=== PATIENT | female | born 1995 ===

== ENCOUNTER 2017-06-03 22:53 | Emergency (ER) | payer MEDICAID ==
[2017-06-03 23:08] VITALS: BP 156/96; PULSE 86; RESP 20; TEMP 98; O2SAT 99
[2017-06-03] MEDS ORDERED: Albuterol-Ipratrop 3 mg / 0.5 (3 ml) UD INH STA (23:48)
[2017-06-04] MEDS ORDERED: Albuterol-Ipratrop 3 mg / 0.5 (3 ml) UD ONE (00:09)
--- NOTE | 2017-06-04 00:22 | ED PDOC ---
HPI: General Adult Time Seen by Provider: 06/03/17 23:14 Chief Complaint (Nursing): Flu-like Symptoms Chief Complaint (Provider): Abdominal Pain/Cough History Per: Patient History/Exam Limitations: no limitations Onset/Duration Of Symptoms: Days (x1 wk) Additional Complaint(s): Heydi Reza is a 21 year old female that is currently (18 weeks gestational age) that presents to the ED with a chief complaint of lower abdominal pain and a cough productive of yellow phlegm that she has been experiencing for the past week. She denies any vomiting, diarrhea, fever, or urinary symptoms. Patient reports that she has been taking Robitussin with mild relief. P: 1 Past Medical History Reviewed: Historical Data, Nursing Documentation, Vital Signs Vital Signs: Last Vital Signs Temp 98.0 F 06/03/17 23:03 Pulse 86 06/03/17 23:03 Resp 20 06/03/17 23:03 BP 156/96 H 06/03/17 23:03 Pulse Ox 99 06/04/17 03:21 - Medical History PMH: No Chronic Diseases - Surgical History Surgical History: No Surg Hx - Family History Family History: States: Unknown Family Hx - Social History Current smoker - smoking cessation education provided: No Alcohol: None Drugs: Denies - Home Medications Home Medications: Ambulatory Orders Medication Instructions Recorded Antipyrine/Benzocaine [Auralgan 1 drop OT BID #10 tory 05/08/15 Otic Tory] Pseudoephedrine Hydrochlorid 60 mg PO Q6 #20 tab 05/08/15 [Sudafed] Famotidine [Pepcid] 20 mg PO DAILY #20 tab 06/07/16 Ondansetron [Zofran] 4 mg PO Q8H #0 tab 06/07/16 Albuterol HFA [Ventolin HFA 90 1 - 2 puff IH Q6 PRN #1 inhaler 06/04/17 mcg/actuation (8 g)] - Allergies Allergies/Adverse Reactions: Allergies Allergy/AdvReac Type Severity Reaction Status Date / Time No Known Allergies Allergy Verified 05/08/15 21:36 Review of Systems Respiratory: Positive for: Cough Gastrointestinal: Positive for: Abdominal Pain Physical Exam - Reviewed Nursing Documentation Reviewed: Yes Vital Signs Reviewed: Yes - Physical Exam Appears: Positive for: Non-toxic, No Acute Distress Head Exam: Positive for: ATRAUMATIC, NORMOCEPHALIC Skin: Positive for: Normal Color, Warm Eye Exam: Positive for: Normal appearance, EOMI, PERRL ENT: Positive for: Normal ENT Inspection. Negative for: Pharyngeal Erythema Neck: Positive for: Normal, Painless ROM Cardiovascular/Chest: Positive for: Regular Rate, Rhythm. Negative for: Murmur Respiratory: Negative for: Normal Breath Sounds (Mild decreased air entry at bases on auscultation b/l), Wheezing Gastrointestinal/Abdominal: Positive for: Normal Exam, Soft. Negative for: Tenderness Back: Positive for: Normal Inspection. Negative for: L CVA Tenderness, R CVA Tenderness Extremity: Positive for: Normal ROM. Negative for: Tenderness, Swelling Neurologic/Psych: Positive for: Alert, Oriented. Negative for: Motor/Sensory Deficits - Laboratory Results Result Diagrams: 06/04/17 00:22 - ECG O2 Sat by Pulse Oximetry: 99 (RA) Pulse Ox Interpretation: Normal Medical Decision Making Medical Decision Making: Impression: 21 year old female with abdominal pain and productive cough Plan: * US OB , Limited * CBC * Beta-HCG * Urinalysis * Urine dip * Duoneb 3 ml INH * Flu Swab * Reevaluation US OB , Limited FINDINGS: Beta-hCG level: Beta-hCG measures 39288. Fetus: Gestation age is approximately 18 weeks. Position: The fetus is in breech position. Heart rate: heart rate measures 152 beats per minute. Placenta: The placenta is noted within the LEFT fundus. No abruption. Cervix: Cervical length measures approximately 5.9 cm. IMPRESSION: Life intrauterine with estimated gestational age of 18 weeks. LEFT fundal placenta with fetus in breech position. 3:10 Discussed benign results of US with patient. Patient given Rx for Albuterol and advised to follow up with PMD. Stable for discharge home. Clinical Impression: Abdominal Pain affecting , Bronchitis Scribe Attestation: Documented by Lalita Juarez, acting as a scribe for Costa Mcintosh MD. Provider Scribe Attestation: All medical record entries made by the Scribe were at my direction and personally dictated by me. I have reviewed the chart and agree that the record accurately reflects my personal performance of the history, physical exam, medical decision making, and the department course for this patient. I have also personally directed, reviewed, and agree with the discharge instructions and disposition. Disposition - Clinical Impression Clinical Impression: Abdominal pain affecting , Bronchitis - Patient ED Disposition Is Patient to be Admitted: No - Disposition Referrals: Keisha Bradley MD [Primary Care Provider] - Disposition: Routine/Home Disposition Time: 03:10 Condition: STABLE Prescriptions: Albuterol HFA [Ventolin HFA 90 mcg/actuation (8 g)] 1 - 2 puff IH Q6 PRN #1 inhaler PRN Reason: Shortness Of Breath/Cough Instructions: Upper Respiratory Infection (ED), Abdominal Pain in ( ED) Forms: [employer] (R[place]an) Print Language: BENGALI
[2017-06-04 00:26] LABS: BASO # 0.2 K/uL (0.0-0.2); BASO % 1.1 % (0.0-2.0); EOS # 0.5 K/uL (0.0-0.7); EOS % 3.3 % (0.0-4.0); HEMATOCRIT 37.9 % (34.0-47.0); LYMPH # 3.1 K/uL (1.0-4.3); LYMPH % 22.7 % (20.0-40.0); MEAN CELL VOLUME 80.9 fl (81.0-99.0); MEAN CORPUSCULAR HEMOGLOBIN 26.8 pg (27.0-31.0); MEAN CORPUSCULAR HGB CONC 33.2 g/dL (33.0-37.0); MEAN PLATELET VOLUME 9.8 fl (7.2-11.7); MONO % 7.6 % (0.0-10.0); NEUT % 65.3 % (50.0-75.0); NRBC % 0.1 % (0.0-0.0); RED CELL DISTRIBUTION WIDTH 14.2 % (11.5-14.5); WHITE BLOOD COUNT 13.8 K/uL (4.8-10.8)
[2017-06-04 00:33] LABS: RBC URINE 1 /hpf (0-3); URINE BILIRUBIN NEGATIVE (NEGATIVE); URINE BLOOD NEGATIVE (NEGATIVE); URINE COLOR STRAW (YELLOW); URINE GLUCOSE (UA) NEG (Normal); URINE KETONE NEGATIVE (NEGATIVE); URINE LEUKOCYTE ESTERASE NEG Leu/uL (Negative); URINE PROTEIN NEGATIVE (NEGATIVE); URINE UROBILINOGEN 0.2-1.0 mg/dL (0.2-1.0); WBC URINE 1 /hpf (0-5)
--- NOTE | 2017-06-04 09:44 | US ---
PROCEDURE: Obstetrical ultrasound examination HISTORY: abd pain preg COMPARISON: Not available TECHNIQUE: Transabdominal FINDINGS: There is a single live intrauterine gestation in breech presentation. A grossly normal quantity of amniotic fluid is visualized. The heart rate is 152 beats per minute. A normal fundal placenta is identified towards the left side. There is no evidence of placenta previa. The cervix is closed and measures 4.6 cm in length. biometry yields gestational age of 18 weeks 0 days. HUSAM by ultrasound is 11/05/2017. anatomy was not assessed at this time. IMPRESSION: Single live intrauterine gestation of approximately 18 weeks 0 days gestational age. heart rate 152. Breech presentation. No previa. Cervix closed. Full anatomic evaluation is advised at approximately 20 weeks gestational age. Preliminary interpretation of this examination was reported by [facility] at 2:55 a.m. on 06/04/2017. There is concurrence of this report with the preliminary interpretation.
== END 2017-06-04 03:28 | disposition home or self-care (01) ==
LOC: H.ER 22:53
DX: J06.9 Acute upper respiratory infection, unspecified (principal); J40 Bronchitis, not specified as acute or chronic; O99.512 Diseases of the respiratory system complicating pregnancy, second trimester; Z3A.20 20 weeks gestation of pregnancy